=== PATIENT | female | born 1995 | race Caucasian/White ===

== ENCOUNTER 2017-07-22 13:56 | Emergency (ER) | payer MEDICAID ==
[~2017-07-22] VITALS: Ht 162.6 cm; Wt 103.1 kg
[~2017-07-22 13:56] MED LIST: DOCU100C33 PO; IBUP-1222 PO; IBUP-1223 PO; OXYC-302 PO
[2017-07-22 14:08] VITALS: BP 144/93
== END 2017-07-22 15:31 | disposition home or self-care (01) ==
LOC: ED 15:08
DX: J01.00 Acute maxillary sinusitis, unspecified (principal)
CPT/HCPCS: 71046; 99284

== ENCOUNTER 2017-10-05 06:33 | Emergency (ER) | payer MEDICAID ==
[~2017-10-05] VITALS: Ht 162.6 cm; Wt 104.8 kg
[2017-10-05 06:35] VITALS: BP 138/90
== END 2017-10-05 07:00 | disposition home or self-care (01) ==
LOC: ED 06:45
DX: L23.9 Allergic contact dermatitis, unspecified cause (principal)
CPT/HCPCS: 99283

== ENCOUNTER 2018-10-16 05:06 | Emergency (ER) | payer MEDICAID ==
[~2018-10-16] VITALS: Ht 162.6 cm; Wt 103.4 kg
[2018-10-16 05:08] VITALS: BP 132/83
--- NOTE | 2018-10-16 05:45 | NUR ---
Patient/Caregiver given discharge instructions and they have confirmed that they understand the instructions. Patient ambulatory with steady gait.
== END 2018-10-16 08:06 ==
LOC: ED 05:41
DX: J02.0 Streptococcal pharyngitis (principal)
CPT/HCPCS: 99283